=== PATIENT | female | born 2005 | race Caucasian/White ===

== ENCOUNTER 2025-05-11 15:59 | Emergency (ER) | payer MEDICAID ==
[2025-05-11 17:52] LABS: APPEARANCE,URINE CLEAR; GLUCOSE,URINE NEGATIVE (NEGATIVE); OCCULT BLOOD,URINE NEGATIVE (NEGATIVE)
[2025-05-11 18:05] LABS: EPITHELIAL CELLS,URINE FEW (NONE-FEW)
== END 2025-05-11 18:32 | disposition home or self-care (01) ==
LOC: MW.ED 15:59
DX: O23.11 Infections of bladder in pregnancy, first trimester (principal); Z88.0 Allergy status to penicillin
CPT/HCPCS: 76801; 76801-26; 81001; 99284